=== PATIENT | female | born 1990 | race African-American/Black ===

== ENCOUNTER 2016-06-20 01:50 | Emergency (ER) | payer SELFPAY ==
[~2016-06-20 01:50] MED LIST: ALPR.25 PO; ASPI325T PO; ATEN-102 PO; DICL50 PO
[2016-06-20 01:52] VITALS: BP 136/86; PULSE 99; RESP 14; TEMP 97.3; O2SAT 99
== END 2016-06-20 01:58 | disposition left against medical advice (07) ==
LOC: NED 01:50
DX: Z00.8 Encounter for other general examination (principal)
CPT/HCPCS: 99281